=== PATIENT | female | born 1960 ===

== ENCOUNTER 2019-02-11 18:27 | Emergency (ER) | payer MEDICAID ==
[~2019-02-11] VITALS: Ht 167.6 cm; Wt 100.0 kg
[2019-02-11] MEDS ORDERED: CARB100 PO (18:34)
[2019-02-11] MEDS ORDERED: PB/HYOSCY/ATR/SCOP/LIDO/MAALOX 55 ML BOTTLE PO ONE (19:30)
[2019-02-11 20:12] VITALS: BP 120/73
== END 2019-02-11 20:33 | disposition home or self-care (01) ==
LOC: EMS 18:29
DX: K21.9 Gastro-esophageal reflux disease without esophagitis (principal)
CPT/HCPCS: 93005